=== PATIENT | male | born 1990 | race Caucasian/White ===

== ENCOUNTER 2021-12-28 13:46 | Emergency (ER) | payer BC, SELFPAY ==
[2021-12-28] VITALS (7 sets, daily range): BP systolic 114–169; BP diastolic 73–96; PULSE 58–82; RESP 16–20; TEMP 36.1–36.3; O2SAT 95–100
--- NOTE | ~2021-12-28 | XR_ITS ---
EXAMINATION: XR chest 2V Exam Date/Time: 12/28/2021 18:25 CDT HISTORY: LT SIDED chest pain X TODAY, LT ARM NUMBNESS/TINGLE Comparison: 09/19/2011. RESULT: Lines, tubes, and devices: None. Lungs and pleura: Clear. Cardiomediastinal silhouette: Stable. Other: No acute osseous or upper abdominal finding. IMPRESSION: No acute cardiopulmonary process. Reviewed, dictated and finalized at location K.
--- NOTE | 2021-12-28 14:44 | ECG_ITS ---
Measurements Intervals Cache Rate: 78 P: 25 AR: 153 QRS: -21 QRSD: 102 T: 12 QT: 362 QTc: 414 Interpretive Statements SINUS RHYTHM DELAYED PRECORDIAL R/S TRANSITION BORDERLINE T WAVE ABNORMALITY- INFERIOR LEADS BORDERLINE ECG NO PREVIOUS ECG AVAILABLE FOR COMPARISON Electronically Signed On 12-28-2021 20:56:39 CDT by Saeid Thompson D.O.
[2021-12-28 15:05] LABS: Basophils Absolute Auto 0.1 K/mm3 (0.0-0.1); Basophils Percent Auto 0.6 % (0.2-1.2); Eosinophils Absolute Auto 0.1 K/mm3 (0-0.3); Eosinophils Percent Auto 1.3 % (0-4.4); Hematocrit 43.7 % (42.0-52.0); Hemoglobin 15.7 g/dL (14.0-18.0); Immature Granulocyte Absolute 0.03 K/mm3 (0.00-0.031); Immature Granulocyte Percent A 0.4 % (0-0.5); Lymphocytes Percent Auto 26.1 % (18.3-44.2); Mean Corpuscular HGB Conc 35.9 g/dl (32-36); Mean Corpuscular Hemoglobin 30.7 pg (26-34); Mean Corpuscular Volume 85.5 fl (80-100); Monocytes Absolute Auto 0.7 K/mm3 (0.1-0.6); Monocytes Percent Auto 8.1 % (2.6-8.5); Neutrophils Absolute Auto 5.4 K/mm3 (1.3-6.7); Neutrophils Percent Auto 63.5 % (45.5-73.1); Platelet Count Result 216 k/mm3 (150-375); Red Blood Count 5.11 M/mm3 (4.6-6.20); Red Cell Distribution Width 11.9 % (11.5-14.5); White Blood Count 8.4 K/mm3 (4.5-10.0)
[2021-12-28 15:17] LABS: Anion Gap 14 mmol/L (8-16); Blood Urea Nitrogen 13 mg/dL (9-20); Calcium 9.7 mg/dL (8.4-10.2); Carbon Dioxide 24 mmol/L (22-30); Chloride 101 mmol/L (98-107); Estimated CRCL calculation 104 ml/min; Estimated Glomerular Filt Rate > 60; Glucose 104 mg/dL (65-110); Potassium 3.7 mmol/L (3.4-5.0); Sodium 139 mmol/L (137-145)
--- NOTE | 2021-12-28 15:55 | ED.DIZZY ---
HPI - Dizziness General Chief Complaint: Dizziness Stated Complaint: dizziness Time Seen by Provider: 12/28/21 15:55 Source: patient and family Mode of arrival: ambulatory Limitations: no limitations History of Present Illness HPI Narrative: Patient is a 31-year-old male with a history of hypertension, hyperlipidemia, anxiety, presenting to the emergency department for evaluation of episode of chest pain, lightheadedness and dizziness. 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 Patient denied any loss of consciousness, fall, lightheadedness. Patient denied dizziness such as spinning sensation. Denied focal numbness but states he felt diffusely weak. He denied shortness of breath, pleuritic pain, cough. Patient did in course centralized chest pain with radiation to the back without ripping or tearing sensation to the flanks. Patient states that this is intermittent and will last for a few seconds before resolving. Patient denies history of recent known COVID infection. He states he is symptomatic from COVID infection 1 year ago. He denies leg swelling or calf pain. He denies history of coagulopathy. He denies recent surgery, immobility, long car or air travel. Patient states that he is worried that he was having symptoms of a heart attack thus seeking care today. Related Data Allergies Allergy/AdvReac Type Severity Reaction Status Date / Time No Known Allergies Allergy Unverified 10/26/17 21:17 Review of Systems Review of Systems: CONSTITUTIONAL: Denies fever, chills, or sweats. EYES: Denies visual changes, redness, or discharge. ENT: Denies rhinorrhea, congestion, sore throat, or otalgia. CARDIOVASCULAR: Reports central chest pain without palpitations or leg edema. RESPIRATORY: Denies cough or dyspnea. GASTROINTESTINAL: Denies abdominal pain, nausea, vomiting, or diarrhea. GENITOURINARY: Denies dysuria or hematuria. SKIN: Denies rash or itching. MUSCULOSKELETAL: Denies current back pain, joint pain, or myalgia. NEUROLOGIC: Denies headache, numbness, or weakness. Denies current dizziness. PSYCHIATRIC: History of anxiety and depression [facility] Social History Social History (Updated 12/28/21 @ 16:23 by Flor sTai MD) Tobacco type: smokeless tobacco Smokeless tobacco user: chewing tobacco Second hand tobacco smoke exposure: No Alcohol intake: never Substance use: never Living arrangements: with family Gender identity (if verbalized by the patient): Male Exam Narrative: GENERAL: Awake, alert, conversant HEAD: Normocephalic, atraumatic. EYES: PERRLA and EOMI. ENT: Nares clear, no rhinorrhea or epistaxis. Mucous membranes moist. NECK: Supple. CHEST: No respiratory distress, breathing even and non labored, no chest wall tenderness HEART: Regular rate, sinus rhythm ABDOMEN:Non distended, non tender EXTREMITIES: Normal range of motion. No edema. SKIN: Warm, dry, no rash. NEURO:No focal deficits. Alert and oriented x3 Course Vital Signs Vital signs: Vital Signs Temperature 36.1 C L 12/28/21 14:47 Pulse Rate 79 12/28/21 14:47 Respiratory Rate 18 12/28/21 14:47 Blood Pressure 169/96 H 12/28/21 14:47 Pulse Oximetry 100 12/28/21 14:47 Oxygen Delivery Room Air 12/28/21 14:47 Temperature 36.3 C L 12/28/21 18:54 Pulse Rate 58 L 12/28/21 18:54 Respiratory Rate 16 12/28/21 18:54 Blood Pressure 128/73 12/28/21 18:54 Pulse Oximetry 100 12/28/21 18:54 Oxygen Delivery Room Air 12/28/21 14:47 MDM - Dizziness MDM Narrative Medical decision making narrative: Patient presented for evaluation of chest pain that is burning in nature and differential does include acid reflux, gastritis, anxiety, esophageal spasm. Patient's EKG and labs are without significant high risk changes. Cardiac risk factors reviewed. Heart score is 3. Patient is
[2021-12-28 16:26] LABS: Appearance Urine Clear (Clear); Bilirubin Urine Negative (Negative); Blood Urine Negative (Negative); Color Urine Yellow (Yellow); Glucose Urine UA Negative (Negative); Ketones Urine Negative (Negative); Leukocyte Esterase Ur Negative LEU/UL (Negative); Nitrate Urine Negative (Negative); Protein Urine Negative (Negative); Urobilinogen Urine 0.2 mg/dL (<2.0)
[2021-12-28 16:40] LABS: Add Urine Microscopic? NO
[2021-12-28] MEDS: SODIUM CHLORIDE 0.9% IV 1,000 ML 999 ML IV CONT (16:40)
[2021-12-28] MEDS: ASPIRIN 81 MG CHEWABLE TABLET 324 MG PO (16:40)
[2021-12-28 16:49] LABS: Troponin I < 0.012 ng/mL (0.000-0.034)
[2021-12-28] MEDS: NITROGLYCERIN SL 0.4 MG TABLET SUBLINGUAL (17:03)
[2021-12-28 18:13] LABS: Troponin I < 0.012 ng/mL (0.000-0.034)
[2021-12-28] MEDS: BELLADONNA ALK/PHENOB ELIX 10 ML, MAG HYDROX/ALUMINUM HYD/SIMETH 30 ML, LIDOCAINE HCL 2... PO (18:41)
--- NOTE | 2021-12-28 18:52 | PC.NURSE ---
reports immediate relief after drinking GI cocktail
== END 2021-12-28 19:00 | disposition home or self-care (01) ==
PROVIDERS: Emergency Provider Emergency Medicine; PCP Internal Medicine
DX: K21.9 Gastro-esophageal reflux disease without esophagitis (principal); R07.89 Other chest pain
CPT/HCPCS: 36415; 71046; 80048; 81003; 84484; 85025; 93005; 96360; 99283; A9270; J7030

== ENCOUNTER 2022-01-29 02:09 | Day surgery (SDC) | payer BC, SELFPAY ==
[2022-01-25 15:54] VITALS: BMI 34.8
[2022-01-29 12:53] VITALS: BP 151/98; PULSE 87; RESP 18; TEMP 36.6; O2SAT 99
[2022-01-29] MEDS: LACTATED RINGERS 1,000 ML 150 ML IV CONT (12:55)
--- NOTE | 2022-01-29 12:56 | WPDHPUPDATE1 ---
History and Physical Update Update Date/Time: 01/29/22 12:56 History and Physical has been reviewed, including an updated exam of the patient. There are NO changes in the patient's condition. Risks, benefits, and alternatives have been discussed and questions answered. Patient agrees to proceed with procedure.
--- NOTE | 2022-01-29 13:03 | P.PNAN_ITS ---
Anes - Initial Pre Proc Eval Procedure: Operation Date: 01/29/22 14:45 Proposed Procedures p Esophagogastroduodenoscopy EGD - Jose Enrique Berry MD Date/Time: 01/29/22 13:03 Surgeon: Jose Enrique Berry MD Pre Op Diagnosis: GERD Patient Data Age: 31 Gender: M Height: 1.88 m Weight: 122.2 kg Last Vital Signs Temp 97.8 F 01/29/22 12:53 Pulse 87 01/29/22 12:53 Resp 18 01/29/22 12:53 BP 151/98 H 01/29/22 12:53 Pulse Ox 99 01/29/22 12:53 O2 Del Method Room Air 01/29/22 12:53 Allergies Allergy/AdvReac Type Severity Reaction Status Date / Time No Known Allergies Allergy Verified 01/29/22 12:52 Home Medications Medication Instructions Recorded Confirmed Type escitalopram oxalate 10 mg tablet 10 mg PO DAILY 01/21/22 01/29/22 History metoprolol succinate 50 mg 50 mg PO DAILY 01/21/22 01/29/22 History tablet,extended release 24 hr pantoprazole 40 mg tablet,delayed 40 mg PO QAM #90 tabs 01/21/22 01/29/22 Rx release Patient hx anesthesia problems: none Family hx anesthesia problems: none Results Review: All pre-operative results and documents have been reviewed as part of the pre- operative evaluation. [facility] Past Medical History Medical History (Updated 01/21/22 @ 14:36 by Aleshia Campbell APRN) Obesity (BMI 30-39.9) Social History Social History Smoking status: Current every day smoker Tobacco type: smokeless tobacco Smokeless tobacco user: chewing tobacco Second hand tobacco smoke exposure: No Alcohol intake: never Substance use: never Substance use type: does not use Living arrangements: with family Gender identity (if verbalized by the patient): Male Spiritual care concerns: No Anes - Eval Final PreProcedure Day of Procedure 01/29/22 13:03 Patient weight: obese Heart: regular rate and rhythm Lungs: clear to auscultation Airway: Mallampati scale class II Neurological: alert and oriented Last oral intake: >/= 8 hours ASA classification: II Emergent: no Anesthetic plan: proceed Anesthesia type and monitoring: general GIVS and standard monitoring Results Review: All pre-operative results and documents have been reviewed as part of the pre- operative evaluation. Informed Consent: The patient's anesthetic plan and its attendant risks and benefits were discussed with the patient/family/POA. Questions were solicited and answers provided to the satisfaction of the patient/family/POA.
[2022-01-29 13:22] VITALS: BP 132/89; PULSE 71; RESP 18; O2SAT 100
[2022-01-29 13:32] VITALS: BP 133/85; PULSE 71; RESP 13; O2SAT 100
[2022-01-29 13:39] VITALS: BP 132/83; PULSE 67; RESP 12; O2SAT 98
== END 2022-01-29 13:57 | disposition home or self-care (01) ==
PROVIDERS: PCP Internal Medicine; Visit Provider Internal Medicine Gastroenterology
PROC: 0DJ08ZZ Inspection of Upper Intestinal Tract, Via Natural or Artificial Opening Endoscopic (ICD-10-PCS; CPT 43235; principal; 2022-01-29 14:45)
DX: R07.89 Other chest pain (principal); K29.50 Unspecified chronic gastritis without bleeding; G47.30 Sleep apnea, unspecified; I10 Essential (primary) hypertension; E78.5 Hyperlipidemia, unspecified; F41.9 Anxiety disorder, unspecified; R12 Heartburn; F17.220 Nicotine dependence, chewing tobacco, uncomplicated; E66.9 Obesity, unspecified; Z68.34 Body mass index [BMI] 34.0-34.9, adult
CPT/HCPCS: 43239; 88305; J2001; J2704; J7120